=== PATIENT | female | born 1960 | race Asian ===

== ENCOUNTER 2018-09-15 12:45 | Day surgery (SDC) | payer OTHER ==
[2018-09-15] MEDS ORDERED: LACTATED RINGERS 1,000 ML IV ONE (13:28)
[2018-09-15] MEDS ORDERED: LIDO GARGLE 30 ML BOTTLE ONE (14:14)
[2018-09-15] MEDS ORDERED: MIDAZOLAM 2 MG/2 ML VIAL IVP ONE (14:39)
[2018-09-15] MEDS ORDERED: fentaNYL 250 MCG/5 ML VIAL IVP ONE (14:39)
[2018-09-15] MEDS ORDERED: BENZOCAINE/TETRACAINE/BUTAMBEN 20 GM TOP ONE (15:22)
[2018-09-15 15:53] VITALS: BP 118/55
== END 2018-09-15 12:46 | disposition home or self-care (01) ==
LOC: SDS 12:45
PROVIDERS: ATTEND Surgery
PROC: 0DB68ZX Excision of Stomach, Via Natural or Artificial Opening Endoscopic, Diagnostic (ICD-10-PCS; principal; 2018-09-15 14:00)
PROC: 0DBP8ZX Excision of Rectum, Via Natural or Artificial Opening Endoscopic, Diagnostic (ICD-10-PCS; 2018-09-15 14:00)
DX: Z12.11 Encounter for screening for malignant neoplasm of colon (principal); K21.9 Gastro-esophageal reflux disease without esophagitis; D12.8 Benign neoplasm of rectum; K64.8 Other hemorrhoids; Z87.11 Personal history of peptic ulcer disease
CPT/HCPCS: 43239; 45380; 87081; A9270; J3010; J7120

== ENCOUNTER 2021-02-19 21:07 | Emergency (ER) | payer OTHER ==
--- NOTE | 2021-02-19 21:24 | ED Physician Documentation ---
History of Present Illness - Stated complaint Stated Complaint: SHAKING/WEAK - Chief complaint Chief Complaint: General - History obtained from History obtained from: Patient - History of Present Illness Timing: Today Pain level now: 2 (headache) Improved by: rest Worsened by: exertion - Additonal information Additional information: drove self to ED. patient states my body is shaking inside (per patient), describes generalized tremulousness and anxiety, generalized headache, lighth eadedness. She felt this way tonight while seated at home in front of her computer. She stood up with intent to go lie down on the [employer] baseball [employer], but was too weak (generalized) to get to the couch and had to lie on the ground for several minutes before she could eventually get back up and she then drove self to ED. Denies chest pain, denies dyspnea. Denies LOC. Review of Systems Constitutional: reports: Reviewed and negative Eyes: reports: Reviewed and negative Ears: reports: Reviewed and negative Throat: reports: Reviewed and negative Cardiac: reports: Reviewed and negative Respiratory: reports: Reviewed and negative GI: reports: Reviewed and negative : denies: Dysuria, Frequency Skin: reports: Reviewed and negative Musculoskeletal: reports: Reviewed and negative Neurologic: reports: Generalized weakness, Near syncope, Headache. 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 - Allergies Allergies/Adverse Reactions: Allergies Allergy/AdvReac Type Severity Reaction Status Date / Time No Known Drug Allergies Allergy Verified 02/19/21 21:10 PD ED PE NORMAL - Vitals Vital signs reviewed: Yes - General General: Alert and oriented X 3, No acute distress, Well developed/nourished - HEENT HEENT: PERRL, EOMI, Moist mucous membranes - Neck Neck: Supple, no meningeal sign, No bony TTP - Cardiac Cardiac: RRR, No murmur - Respiratory Respiratory: No respiratory distress, Clear bilaterally - Abdomen Abdomen: Soft, Non tender - Derm Derm: Normal color, Warm and dry - Neuro Neuro: Alert and oriented X 3, last repairer 2-12 intact, No motor deficit, No sensory deficit, Normal speech, Other (ambulates to/from bathroom at end of H+P without apparent difficulty) Eye Opening: Spontaneous Motor: Obeys Commands Verbal: Oriented GCS Score: 15 - Psych Psych: Normal mood, Normal affect Results - Vitals Vitals: Oxygen O2 Source Room air - EKG (time done) No standard instances Rate: Rate (enter#) (61) Rhythm: NSR [place]: Normal Intervals: Normal NM QRS: Normal Ischemia: Normal ST segments - Labs Labs: Laboratory Tests 02/19/21 02/19/21 02/19/21 21:28 21:28 21:28 WBC 7.5 RBC 4.47 Hgb 14.1 Hct 41.8 MCV 93.5 MCH 31.5 H MCHC 33.7 RDW 11.7 L Plt Count 300 MPV 9.0 Neut # (Auto) 4.2 Lymph # (Auto) 1.8 Labette # (Auto) 0.6 Eos # (Auto) 0.7 Baso # (Auto) 0.1 Absolute Nucleated RBC 0.00 Nucleated RBC % 0.0 Sodium 139 Potassium 3.7 Chloride 106 Carbon Dioxide 25 Anion Gap 8.0 BUN 16 Creatinine 0.6 Estimated GFR (MDRD) 102 Glucose 110 H Calcium 9.7 Total Bilirubin 0.6 AST 18 ALT 21 Alkaline Phosphatase 61 Troponin I High Sens 2.9 Total Protein 7.9 Albumin 4.6 Globulin 3.3 Albumin/Globulin Ratio 1.4 Lipase 38 Urine Color Urine Clarity Urine pH Ur Specific Elmo Urine Protein Urine Glucose (UA) Urine Ketones Urine Occult Blood Urine Nitrite Urine Bilirubin Urine Urobilinogen Ur Leukocyte Esterase Urine RBC Urine WBC Ur Squamous Epith Cells Urine Bacteria Ur Microscopic Review Urine Culture Comments 02/19/21 21:55 WBC RBC Hgb Hct MCV MCH MCHC RDW Plt Count MPV Neut # (Auto) Lymph # (Auto) Labette # (Auto) Eos # (Auto) Baso # (Auto) Absolute Nucleated RBC Nucleated RBC % Sodium Potassium Chloride Carbon Dioxide Anion Gap BUN Creatinine Estimated GFR (MDRD) Glucose Calcium Total Bilirubin AST ALT Alkaline Phosphatase Troponin I High Sens Total Protein Albumin Globulin Albumin/Globulin Ratio Lipase Urine Color YELLOW Urine Clarity CLEAR Urine pH 5.5 Ur Specific Elmo >=1.030 H Urine Protein NEGATIVE Urine Glucose (UA) NEGATIVE Urine Ketones NEGATIVE Urine Occult Blood SMALL H Urine Nitrite NEGATIVE Urine Bilirubin NEGATIVE Urine Urobilinogen 0.2 (NORMAL) Ur Leukocyte Esterase NEGATIVE Urine RBC 0-5 Urine WBC 0-3 Ur Squamous Epith Cells RARE Squamous Urine Bacteria Rare Ur Microscopic Review INDICATED Urine Culture Comments NOT INDICATED - Rads (name of study) chest xray Radiology: Prelim report reviewed, See rad report CT Head Radiology: Prelim report reviewed, See rad report PD MEDICAL DECISION MAKING - ED course Complexity details: reviewed results, re-evaluated patient, considered di fferential, d/w patient ED course: near syncopal episode at home, unremarkable/reassuring test results tonight including CXR, EKG, blood tests, and CT head (CT was performed considering she also was having new-onset, though mild, headache). She is given 1 liter NS in ED, results d/w patient, and she reports feeling much better and comfortable with d/c home Departure - Departure Disposition: 01 Home, Self Care Clinical Impression: Near syncope Condition: Good Instructions: ED Near Syncope Unkn Follow-Up: JOSI IVY MD [Primary Care Provider] - Within 1 week Discharge Date/Time: 02/19/21 23:52
[2021-02-19 21:33] LABS: BASOPHILS # (AUTO) 0.1 10^3/uL (0.0-0.1); BASOPHILS % (AUTO) 1.5 %; EOSINOPHILS # (AUTO) 0.7 10^3/uL (0.0-0.7); EOSINOPHILS % (AUTO) 9.5 %; HCT - HEMATOCRIT 41.8 % (37.0-47.0); HGB - HEMOGLOBIN 14.1 g/dL (12.0-16.0); LYMPHOCYTES # (AUTO) 1.8 10^3/uL (1.5-3.5); LYMPHOCYTES % (AUTO) 24.5 %; MEAN CORPUSCULAR HEMOGLOBIN 31.5 pg (27.0-31.0); MEAN CORPUSCULAR HGB CONC 33.7 g/dL (32.0-36.0); MEAN CORPUSCULAR VOLUME 93.5 fL (81.0-99.0); MONOCYTES # (AUTO) 0.6 10^3/uL (0.0-1.0); MONOCYTES % (AUTO) 7.7 %; NEUTROPHILS # (AUTO) 4.2 10^3/uL (1.5-6.6); NEUTROPHILS % (AUTO) 56.5 %; PLT - PLATELET COUNT 300 10^3/uL (130-450); RED BLOOD COUNT 4.47 10^6/uL (4.20-5.40); RED CELL DISTRIBUTION WIDTH 11.7 % (12.0-15.0); WHITE BLOOD COUNT 7.5 x10^3/uL (4.8-10.8)
[2021-02-19] MEDS ORDERED: SODIUM CHLORIDE 0.9% 1,000 ML IV STA (21:37)
[2021-02-19 21:47] LABS: ALBUMIN 4.6 g/dL (3.2-5.5); ALBUMIN/GLOBULIN RATIO 1.4 (1.0-2.2); BILIRUBIN,TOTAL 0.6 mg/dL (0.2-1.0); CALCIUM 9.7 mg/dL (8.5-10.3); CREATININE 0.6 mg/dL (0.4-1.0); POTASSIUM 3.7 mmol/L (3.5-5.0); TOTAL PROTEIN 7.9 g/dL (6.7-8.2)
[2021-02-19 22:06] LABS: BILIRUBIN,URINE NEGATIVE (NEGATIVE); GLUCOSE, URINE (UA) NEGATIVE (NEGATIVE); KETONES,URINE (UA) NEGATIVE (NEGATIVE); LEUKOCYTE ESTERASE, URINE NEGATIVE (NEGATIVE); NITRITE,URINE NEGATIVE (NEGATIVE); OCCULT BLOOD,URINE SMALL (NEGATIVE); PH,URINE 5.5 PH (5.0-7.5); PROTEIN,URINE NEGATIVE (NEGATIVE); UROBILINOGEN,URINE 0.2 (NORMAL) E.U./dL (NORMAL)
[2021-02-19 22:07] LABS: CLARITY,URINE CLEAR (CLEAR)
[2021-02-19 22:13] LABS: BACTERIA,URINE Rare /HPF (None Seen); RBC,URINE 0-5 /HPF (0-5); SQUAMOUS EPITHELIAL CELL,UR RARE Squamous (<= Few); WBC,URINE 0-3 /HPF (0-5)
--- NOTE | 2021-02-19 22:52 | XRAY Report ---
PROCEDURE: Chest 2 View X-Ray INDICATIONS: near syncope TECHNIQUE: 2 view(s) of the chest. COMPARISON: None. FINDINGS: Surgical changes and devices: None. Lungs and pleura: No pleural effusions or pneumothorax. Lungs are clear. Mediastinum: Mediastinal contours are normal. Heart size is mildly enlarged Bones and chest wall: No suspicious bony abnormalities. Soft tissues appear unremarkable. IMPRESSION: No acute pulmonary process. Reviewed by: Amina Solo MD on 02/19/2021 10:51 PM PDT Approved by: Amina Solo MD on 02/19/2021 10:51 PM PDT Station ID: [id number]
--- NOTE | 2021-02-19 22:53 | CT Report ---
PROCEDURE: HEAD WO INDICATIONS: near-syncope, FLORES TECHNIQUE: Noncontrast 4.5 mm thick angled axial sections acquired from the foramen magnum to the vertex. For r adiation dose reduction, the following was used: automated exposure control, adjustment of mA and/or kV according to patient size. COMPARISON: None. FINDINGS: Image quality: Excellent. CSF spaces: Basal cisterns are patent. No extra-axial fluid collections. Ventricles are normal in size and shape. Brain: No midline shift. No intracranial masses or hemorrhage. Sandhu-white matter interface is norm al. Skull and face: Calvarium and visualized facial bones are intact, without suspicious lesions. Sinuses: Visualized sinuses and mastoids are clear. IMPRESSION: No acute pulmonary process. Reviewed by: Amina Solo MD on 02/19/2021 10:52 PM PDT Approved by: Amina Solo MD on 02/19/2021 10:52 PM PDT Station ID: [id number]
[2021-02-19 23:40] VITALS: BP 129/74
== END 2021-02-19 23:52 | disposition home or self-care (01) ==
LOC: ED 21:07
DX: R55 Syncope and collapse (principal)
CPT/HCPCS: 36415; 80053; 81001; 81003; 83690; 84484; 85025; 87086; 93005; 96360; 96361; 99284

== ENCOUNTER 2023-02-07 17:29 | Outpatient (CLI) | payer OTHER ==
--- NOTE | 2023-02-08 08:10 | MRI Report ---
PROCEDURE: BRAIN WO INDICATIONS: MIGRAINE TECHNIQUE: Noncontrast axial T1 spin echo, axial T2 fast spin echo, sagittal and axial FLAIR, coronal T2 fast sp in echo, axial gradient echo, axial diffusion and ADC through the brain. COMPARISON: CT head dated 02/19/2021. FINDINGS: Image quality: Excellent. CSF Spaces: Basal cisterns are patent. No extra-axial fluid collections. Ventricles are normal in size and shape. Brain: No intracranial masses or hemorrhage. Sandhu/white matter interface is normal. Brainstem appe ars normal. Diffusion-weighted images demonstrate no acute ischemic insult. No chronic ischemic ins ults. Normal intravascular flow voids are present. Skull and face: Calvarium has normal marrow signal. Orbits appear normal. Sinuses: Sinuses and mastoids are clear. IMPRESSION: Unremarkable brain MRI. No acute intracranial process. Reviewed by: Clint Logan MD on 02/08/2023 8:09 AM PDT Approved by: Clint Logan MD on 02/08/2023 8:09 AM PDT Station ID: [id number]
== END 2023-02-07 17:30 | disposition home or self-care (01) ==
LOC: DI 17:29
PROVIDERS: ATTEND Physician Assistant
DX: G43.909 Migraine, unspecified, not intractable, without status migrainosus (principal)

== ENCOUNTER 2023-11-11 12:43 | Outpatient (CLI) | payer OTHER ==
--- NOTE | 2023-11-11 16:10 | DEXA Report ---
PROCEDURE: Dexa Spine and/or Hip INDICATIONS: POST MENOPAUSAL TECHNIQUE: Dual energy x-ray absorptiometry (DXA) was performed on a Crack System. Regions measur ed are the AP Spine, femoral neck, and if needed forearm. COMPARISON: None FINDINGS: Lumbar Spine: Bone Mineral Density: 1.19 g/cm/cm,T score: 0.1. Left Femoral Neck: Bone Mineral Density: 1 g/cm/cm, T score: -0.3. Left Hip: Bone Mineral Density: 1.13 g/cm/cm,T score: 1. (T score greater or equal to -1.0: NORMAL) (T score from -1.1 to -2.4: OSTEOPENIA) (T score less than or equal to -2.5 to: OSTEOPOROSIS) Impression: By WHO criteria, this patient has normal bone density. Patients with diagnosis of osteoporosis or osteopenia should have regular bone mineral density assess ment. For those eligible for Medicare, routine testing is allowed once every 2 years. Testing frequ ency can be increased for patients who have rapidly progressing disease or for those who are receivin g medical therapy to restore bone mass. Reviewed by: Ino Ramsey MD on 11/11/2023 4:08 PM PDT Approved by: Ino Ramsey MD on 11/11/2023 4:08 PM PDT Station ID: [id number]
== END 2023-11-11 12:44 | disposition home or self-care (01) ==
LOC: DI 12:43
PROVIDERS: ATTEND Nurse Practitioner Family
DX: Z78.0 Asymptomatic menopausal state (principal)

== ENCOUNTER 2024-01-31 08:56 | Outpatient (CLI) | payer OTHER ==
--- NOTE | 2024-01-31 09:34 | Sleep Patient Instructions ---
Sleep Center Visit Summary - Patient Visit Information Reason for Visit: Initial consult for evaluation of sleep disordered breathing and other sleep issues. - Patient Instructions Instructions Attached: Sleep Study Additional Instructions: You will be completing a sleep study, either an in-lab polysomnography (PSG) or home sleep study (HST). You will follow-up in the sleep care office after the sleep study is completed to hear the results and talk about therapy, if needed. You will be called by our office staff to schedule this appointment, but you may contact us with any questions. - Clinic Information Contact: [facility] [address] [place] [address] [email or web address] T: [phone]
--- NOTE | 2024-01-31 09:36 | SLEEP CARE CONSULTATION ---
Information from patient questionnaire entered by Erica Fagan. I have reviewed and concur with the information entered by Erica Fagan. This document represents the service I personally performed and the decisions made by me, Latasha Mclaughlin ARNP. History of Present Illness Service Date and Time: 01/31/2024 0856 Reason for Visit: New patient Chief Complaint: reports: Unrefreshed sleep, Snoring, Excessive daytime sleepiness, Observed pauses in breathing, Fatigue Date of Onset: 2YRS Usual bedtime: 2200 Time it takes to fall asleep: IT DEPENDS Snores at night: Yes Observed to quit breathing while asleep: No Number of times waking at night: NOT THAT OFTEN Reasons for waking at night: reports: Snoring, Pain, Bathroom, Other (DREAMS) Toss, Turn, or Twitch while sleeping: Yes Recalls having dreams: Yes Usually gets out of bed at: 0430 Feels refreshed in the morning: Yes Morning headache: Yes Sleepy or fatigued during the day: Yes Ever fallen asleep while driving: No Takes day naps: No Dreams during day naps: No Prior sleep studies: No Additional HPI information: I had the pleasure of seeing NADIA MARTINEZ today regarding the possibility of her having a sleep disorder. Her current complaints are excessive daytime sleepiness, fatigue, observed pauses in breathing, snoring and unrefreshed sleep. She has been told she has a very loud snore. She is not sure she is "having enough sleep" because she wakes up feeling tired. She wakes up with a dry mouth and thirsty. She says when she sits down with her computer she will doze off. She also sometimes wakes up with headaches. Her says there wa s a times that she may have stopped breathing in her sleep. He uses a CPAP for his sleep apnea and is waking her up due to her snoring. She sometimes takes a long time to fall asleep. The patient tells me that she normally goes to bed around 10 pm, and it takes her approximately 60 minutes to fall asleep. She has been told that she snores loudly and irregularly at night. She has been observed to stop breathing in her sleep. Her bed partner can still sleep in the same bed. She can recall waking up on the average of few times during the night. Most of the time she wakes up because of bathroom, dreams and pain. She has occasionally awakened for her own snoring. There is a lot of tossing and turning in her sleep. Generally she can recall having dreams. She usually wakes up at 0430 and does not feel refreshed. She usually does have a morning headache about 1 time a week. During the day she complains of feeling sleepy and fatigued. She has never fallen asleep while driving nor has any accident due to sleepiness. She usually does not take naps during the day. She denies having impaired concentration during the day. There is no somniloquy (sleep talking) or somnambulism (sleep walking). - Parasomnia Symptoms Ever been unable to move upon waking from sleep: No Walks in sleep: No Talks in sleep: No Ever acted out dreams in sleep: No Ever felt weak in the knees when startled or emotional: No Bothered by creepy, crawly, restless sensations in legs: No Problems with memory or concentration: No Subjective Initial Charlotte Sleepiness Scale score: 16 (01/31/24) Past Medical History Past Medical History: reports: Hypertension, Other (MIGRAINE) Social History The patient's occupation is a [employer]. Patient is and lives in [place]. Have you smoked in the past 12 months: No Alcohol use: Yes Alcohol amount and frequency: A GLASS OF WINE OCCASIONALLY Caffeine use: Yes Caffeine amount and frequency: 1 CUP 1-2 X DAILY Family History Family history of sleep disordered breathing: Yes Family Hx Sleep Apnea: Other: Snoring (SON) Allergies and Home Medications Known drug allergies: No Drug allergies reviewed: Yes Home medication list reviewed: Yes (as listed) Allergy and home medication list: Allergies No Known Drug Allergies Allergy (Verified 01/31/24 08:58) Home Medications Medication Instructions Recorded Confirmed Last Taken Type Ascorbic Acid [Vitamin C] See Rx Instructions .ROUTE .COMPLEX 01/31/24 01/31/24 Unknown History Atorvastatin [Lipitor] See Rx Instructions .ROUTE .COMPLEX 01/31/24 01/31/24 Unknown History Cholecalciferol (Vitamin D3) See Rx Instructions .ROUTE .COMPLEX 01/31/24 01/31/24 Unknown History [Vitamin D3] Losartan [Cozaar] See Rx Instructions .ROUTE .COMPLEX 01/31/24 01/31/24 Unknown History Magnesium See Rx Instructions .ROUTE .COMPLEX 01/31/24 01/31/24 Unknown History Multivitamin See Rx Instructions .ROUTE .COMPLEX 01/31/24 01/31/24 Unknown History [place]-3/Dha/Epa/Fish Oil [Fish Oil See Rx Instructions .ROUTE .COMPLEX 01/31/24 01/31/24 Unknown History 1,000 mg Softgel] SUMAtriptan [Imitrex] See Rx Instructions .ROUTE .COMPLEX 01/31/24 01/31/24 Unknown History Topiramate [Topamax] See Rx Instructions .ROUTE .COMPLEX 01/31/24 01/31/24 Unknown History Review of Systems Weight gain over past 5 years: 30+ Cardiovascular: reports: high blood pressure Gastrointestinal: denies: heartburn Neurological: reports: headaches Psychiatric: denies: anxiety, depression Ear/Nose/Throat: denies: tonsillectomy Musculoskeletal: reports: neck pain Physical Exam Vital signs obtained and entered by: ERICA Raygoza MA Blood Pressure: 131/68 (RIGHT ARM) Cuff size: regular Heart Rate: 63 O2 Saturation: 97 Height: 5 ft 3 in Weight: 170 lb Body Mass Index: 30.1 BMI Classification: Obese Neck circumference: 14 Nostrils: patent to airflow Mouth and throat: narrow oropharynx Soft palate: long Hard palate: normal Uvula: normal Uvula visualization: 0% Mallampati Class IV Tongue: normal in size Tonsils: small Neck: normal w/o lymphadenopathy or thyromegaly Heart: regular rate and rhythm Lungs: clear bilaterally Impression and Plan 1. Suspected Obstructive Sleep Apnea-Hypopnea Syndrome, as suggested by a history of loud and irregular snoring, observed cessation of breath while asleep, unrefreshed sleep, and excessive daytime sleepiness. Narrow oropharynx and obesity are common predisposing factors for obstructive sleep apnea-hypopnea syndrome. I recommend proceeding to polysomnography to confirm the diagnosis and to assess severity. If the patient has significant sleep disordered breathing, a manual CPAP titration study will also be performed to find the optimal treatment pressure. I informed the patient of what the sleep studies involve and after some discussion, obtained agreement to proceed. The pathophysiology of obstructive sleep apnea-hypopnea syndrome was discussed with the patient and health risks of cardiovascular and cerebrovascular disease if not treated. Risks of drowsy driving discussed in detail and patient advised to avoid long distance driving and to head well puller at the first sign of drowsiness. Patient agreed to plan. * Schedule polysomnography * Avoid long distance driving or driving when feeling sleepy. * Avoid alcohol, sedative and muscle relaxant around bedtime. * Attempt to lose weight. * Review instructions provided by trained office staff on how to prepare for the sleep study. * Return for follow-up after sleep study completed. Counseling Topics: Weight loss health impact Plan: PSG and follow up Visit Type: In Office Time Spent with Patient (minutes): 30 Provider Statement: I spent 100% of the Face to Face Visit with the patient with greater than 50% spent counseling the patient and coordination of care.
[2024-01-31 09:40] VITALS: BP 131/68; O2SAT 97
== END 2024-01-31 08:57 | disposition home or self-care (01) ==
LOC: SC 08:56
PROVIDERS: ATTEND Nurse Practitioner Family
DX: G47.8 Other sleep disorders (principal); R06.83 Snoring; G47.10 Hypersomnia, unspecified; R06.81 Apnea, not elsewhere classified; R53.83 Other fatigue; E66.9 Obesity, unspecified; Z68.30 Body mass index [BMI] 30.0-30.9, adult
CPT/HCPCS: 99203; 99212